=== PATIENT | male | born 1995 | race Caucasian/White ===

== ENCOUNTER 2020-06-24 13:40 | Outpatient (REF) | payer BC, SELFPAY ==
[2020-06-26 16:39] LABS: COVID-19 RT-PCR Result NEGATIVE (Negative)
== END 2020-06-24 14:00 ==
LOC: NCHCN 13:40
PROVIDERS: PCP Nurse Practitioner Family; Visit Provider Family Medicine
DX: Z20.828 Contact with and (suspected) exposure to other viral communicable diseases (principal)
CPT/HCPCS: U0003